=== PATIENT | female | born 1935 | race Caucasian/White ===

== ENCOUNTER 2019-06-04 09:45 | Inpatient (IN) | payer OTHER ==
[~2019-06-04] VITALS: Ht 148.6 cm; Wt 71.9 kg
[2019-06-04] VITALS (21 sets, daily range): BP systolic 96–177; BP diastolic 54–91; PULSE 88–109; RESP 13–28; Ht 148.6 cm; Wt 71.9 kg
[~2019-06-04 09:45] MED LIST: ASPI325T29 PO; DOCU-144 PO; GABA300C16 PO; GLIM1TAB2 PO; HYDR-3601 PO; LISI-471 PO; MAGN400T27 PO; METF100010 PO; PIOG45TA64 PO; SIMV5TAB14 PO; TRAM50TA PO; TRIA15CR55 TOP
[2019-06-04] MEDS: SOD CHLORIDE 0.9% 1,000 ML IV SCH (11:08)
[2019-06-04] MEDS ORDERED: INSULIN REGULAR, HUMAN 100 UNIT/1 ML 3ML VIAL SC ONE (11:30)
[2019-06-04] MEDS ORDERED: NEOMYC/POLYMYX/BACIT 30 GM OINT ONE (12:17)
[2019-06-04] MEDS ORDERED: POLYMYXIN/BACITRACIN 1L IRRIG ONE (12:17)
[2019-06-04] MEDS ORDERED: ROPIVACAINE 0.2% 20 ML VIAL ONE (12:27)
[2019-06-04] MEDS ORDERED: CEFAZOLIN 1 GM INJ ONE (12:27)
[2019-06-04] MEDS ORDERED: PROPOFOL 100 ML ONE (12:27)
[2019-06-04] MEDS ORDERED: FENTAnyl 50 MCG/ML VIAL ONE (12:27)
[2019-06-04] MEDS ORDERED: PHENYLephrine (100 MCG/ML) 10ML SYG ONE (12:30)
[2019-06-04] MEDS ORDERED: TRANEXAMIC ACID 1GM/100ML(PMX) 200 ML ONE (12:50)
[2019-06-04] MEDS ORDERED: HETASTARCH 6% NACL 500 ML ONE (12:57)
[2019-06-04] MEDS ORDERED: ONDANSETRON 4 MG INJ ONE (13:30)
[2019-06-04] MEDS ORDERED: METOCLOPRAMIDE 10 MG INJ ONE (13:30)
[2019-06-04] MEDS ORDERED: DEXAMETHASONE 4 MG/ML 5 ML INJ ONE (13:30)
[2019-06-04] MEDS ORDERED: MEPERIDINE 25 MG INJ IV PRN (14:00)
[2019-06-04] MEDS ORDERED: HYDROCODONE/APAP (5/325) TAB PO PRN (14:00)
[2019-06-04] MEDS ORDERED: NALOXONE (0.4 MG/ML) INJ IV PRN ×3 (14:00→14:30)
[2019-06-04] MEDS ORDERED: morphine 2 MG INJ IV PRN ×3 (14:00→18:00)
[2019-06-04] MEDS ORDERED: FENTAnyl 50 MCG/ML VIAL IV PRN ×2 (14:00)
[2019-06-04] MEDS ORDERED: EPHEDrine 25 MG/5 ML SYG IV PRN (14:00)
[2019-06-04] MEDS ORDERED: HYDROmorphONE 0.5 MG/0.5 ML SYG IV PRN ×3 (14:00→18:00)
[2019-06-04] MEDS ORDERED: NALBUPHINE HCL (10 MG/1 ML) INJ IV PRN (14:00)
[2019-06-04] MEDS ORDERED: ALBUMIN HUMAN 5% 250 ML IV PRN (14:00)
[2019-06-04] MEDS ORDERED: hydrALAzine 20 MG INJ IV PRN (14:00)
[2019-06-04] MEDS ORDERED: ONDANSETRON 4 MG INJ IV PRN ×2 (14:00)
[2019-06-04] MEDS ORDERED: DIPHENHYDRAMINE 50 MG INJ IV PRN ×2 (14:00)
[2019-06-04] MEDS ORDERED: METOCLOPRAMIDE 10 MG INJ IV PRN (14:00)
[2019-06-04] MEDS ORDERED: OXYCODONE/ACETAMINOPHEN (5/325) TAB PO PRN (14:00)
[2019-06-04] MEDS ORDERED: ACETAMINOPHEN 500 MG TAB PO PRN (14:00)
[2019-06-04] MEDS ORDERED: LABETALOL HCL 20MG INJ IV PRN (14:00)
[2019-06-04] MEDS ORDERED: HYDROmorphONE 1 MG/5 ML IV SYRINGE IV PRN ×2 (14:00)
[2019-06-04] MEDS ORDERED: SENNA/DOCUSATE NA (8.6MG/50MG) TAB PO PRN (14:30)
[2019-06-04] MEDS ORDERED: MAGNESIUM HYDROXIDE 30ML CUP PO PRN (14:30)
[2019-06-04] MEDS ORDERED: BISACODYL 10 MG SUPP PR PRN (14:30)
[2019-06-04] MEDS ORDERED: NA PHOSPHATE/BIPHOS 133 ML ENEMA PR PRN (14:30)
[2019-06-04] MEDS ORDERED: DOCUSATE SODIUM 100 MG CAP PO ONE (14:30)
[2019-06-04] MEDS ORDERED: NACL 0.9% 3 ML SYG IV SCH (14:30)
[2019-06-04] MEDS: CEFAZOLIN 2 GM/50 ML (PMX) 50 ML IVPB SCH ×2 (15:46→22:36)
[2019-06-04] MEDS ORDERED: GLUCAGON 1 MG INJ IM PRN (16:00)
[2019-06-04] MEDS ORDERED: GLUCOSE GEL 15 GRAM TUBE PO PRN ×2 (16:00)
[2019-06-04] MEDS ORDERED: DEXTROSE 50% 50 ML SYRINGE IV PRN ×2 (16:00)
[2019-06-04] MEDS ORDERED: GLUCOSE GEL 15 GRAM TUBE BUCCAL PRN (16:00)
[2019-06-04] MEDS: INSULIN ASPART [NOVOLOG] 3 ML PEN SC SCH ×2 (17:55→21:07)
[2019-06-04] MEDS: HYDROmorphONE 0.5 MG/0.5 ML SYG IV PRN ×2 (18:51→22:36)
[2019-06-04] MEDS ORDERED: SIMVASTATIN 20 MG PO SCH (21:00)
[2019-06-04] MEDS: ASPIRIN 325 MG TAB PO SCH (21:04)
[2019-06-04] MEDS: ATORVASTATIN 10 MG TAB PO SCH (21:04)
[2019-06-05] VITALS (7 sets, daily range): BP systolic 132–180; BP diastolic 63–85; PULSE 74–97; RESP 18–20
[2019-06-05] MEDS: morphine 2 MG INJ IV PRN ×2 (00:57→08:27)
[2019-06-05] MEDS: ACCU-CHEK XX SCH (02:00)
[2019-06-05] MEDS: DOCUSATE SODIUM 100 MG CAP PO SCH ×2 (08:26→20:19)
[2019-06-05] MEDS: ASPIRIN 325 MG TAB PO SCH ×2 (08:27→20:19)
[2019-06-05] MEDS: INSULIN ASPART [NOVOLOG] 3 ML PEN SC SCH ×4 (08:37→21:14)
[2019-06-05] MEDS ORDERED: LISINOPRIL 20 MG TAB PO SCH (09:00)
[2019-06-05] MEDS ORDERED: PIOGLITAZONE 45 MG TAB PO SCH (10:00)
[2019-06-05] MEDS: metFORMIN 500 MG TAB PO SCH ×2 (10:46→17:44)
[2019-06-05] MEDS: SOD CHLORIDE 0.9% 1,000 ML IV SCH (10:50)
[2019-06-05] MEDS: HYDROCODONE/APAP (5/325) TAB PO PRN ×3 (11:07→18:39)
[2019-06-05] MEDS ORDERED: ONDANSETRON 4 MG INJ IV PRN (12:30)
[2019-06-05] MEDS ORDERED: hydrALAzine 20 MG INJ IV PRN (12:30)
[2019-06-05] MEDS: ATORVASTATIN 10 MG TAB PO SCH (20:19)
[2019-06-05] MEDS ORDERED: KETOROLAC 30 MG INJ IV STA (20:44)
[2019-06-05] MEDS: GABAPENTIN 300 MG CAP PO SCH (21:10)
[2019-06-06] MEDS: ACCU-CHEK XX SCH (01:56)
[2019-06-06] MEDS: HYDROCODONE/APAP (5/325) TAB PO PRN ×2 (05:11→19:43)
[2019-06-06] MEDS ORDERED: PANTOPRAZOLE (EC) 40 MG TAB PO SCH (06:00)
[2019-06-06 07:33] VITALS: BP 112/53; PULSE 82; RESP 18
[2019-06-06] MEDS ORDERED: GLIMEPIRIDE 2 MG TAB PO SCH (07:50)
[2019-06-06] MEDS: INSULIN ASPART [NOVOLOG] 3 ML PEN SC SCH ×4 (08:43→21:04)
[2019-06-06] MEDS: DOCUSATE SODIUM 100 MG CAP PO SCH ×2 (08:43→20:40)
[2019-06-06] MEDS: ASPIRIN 325 MG TAB PO SCH ×2 (08:43→20:40)
[2019-06-06] MEDS: GABAPENTIN 300 MG CAP PO SCH ×3 (08:44→20:41)
[2019-06-06] MEDS: metFORMIN 500 MG TAB PO SCH ×2 (08:47→18:23)
[2019-06-06] MEDS ORDERED: LISINOPRIL 20 MG TAB PO SCH (09:00)
[2019-06-06] MEDS ORDERED: PIOGLITAZONE 15 MG TAB PO SCH (09:00)
[2019-06-06 13:49] VITALS: BP 121/57; PULSE 92; RESP 18
[2019-06-06] MEDS ORDERED: SOD CHLORIDE 0.9% 500 ML IV ONE (14:00)
[2019-06-06] MEDS: MAGNESIUM OXIDE 400 MG TAB PO SCH ×2 (15:03→20:41)
[2019-06-06 15:42] VITALS: BP 135/63; PULSE 101
[2019-06-06 15:43] VITALS: BP 112/55; PULSE 101
[2019-06-06 15:46] VITALS: BP 137/60; PULSE 101; RESP 18
[2019-06-06 19:35] VITALS: BP 162/70; PULSE 105; RESP 20
[2019-06-06] MEDS: ATORVASTATIN 10 MG TAB PO SCH (20:41)
== END 2019-06-06 23:25 | DRG 470 ==
LOC: REC 09:45 → MS1 17:03
PROVIDERS: ADMIT Specialist; ATTEND Specialist
PROC: 0SRD069 Replacement of Left Knee Joint with Oxidized Zirconium on Polyethylene Synthetic Substitute, Cemented, Open Approach (ICD-10-PCS; principal; 2019-06-04 12:00)
DX: M17.12 Unilateral primary osteoarthritis, left knee (principal); E87.1 Hypo-osmolality and hyponatremia; E11.36 Type 2 diabetes mellitus with diabetic cataract; E11.51 Type 2 diabetes mellitus with diabetic peripheral angiopathy without gangrene; D64.9 Anemia, unspecified; E86.1 Hypovolemia; I10 Essential (primary) hypertension; E78.5 Hyperlipidemia, unspecified; H26.9 Unspecified cataract; R11.0 Nausea; Z79.4 Long term (current) use of insulin; Z79.82 Long term (current) use of aspirin
CPT/HCPCS: 80048; 82962; 83735; 84100; 85025; 87086; 88304; 88311; 97110; 97116; 97162; 97530; C1713; C1776; J0360; J0690; J1100; J1170; J1815; J1885; J2270; J2370; J2405; J2765; J2795; J3010; J7030; J7040